=== PATIENT | female | born 1940 | race Caucasian/White ===

== ENCOUNTER 2021-11-11 19:24 | Emergency (ER) | payer BC, SELFPAY ==
[2021-11-11 19:30] VITALS: BP 175/93; PULSE 79; RESP 18; TEMP 36.7; O2SAT 98; BMI 23.2
[2021-11-11 19:36] VITALS: BP 156/97; PULSE 76
[2021-11-11 19:37] VITALS: BP 175/94; PULSE 76
--- NOTE | 2021-11-11 19:40 | XR_ITS ---
PROCEDURE INFORMATION: Exam: XR Left Hand Exam date and time: 11/11/2021 8:17 PM Age: 80 years old Clinical indication: Injury or trauma; Fall; Blunt trauma (contusions or hematomas); Hand; Left TECHNIQUE: Imaging protocol: XR Left hand. Views: 3 or more views. COMPARISON: No relevant prior studies available. FINDINGS: Bones/joints: Osteopenia. Osteopenia. Postsurgical changes to the 1st ray. Degenerative changes wrist with joint space narrowing and overlap bony structures. Mildly comminuted fracture distal radius which potentially extends to the articular surface. Soft tissues: Normal. IMPRESSION: Mildly comminuted fracture distal radius which potentially extends to the articular surface.
--- NOTE | 2021-11-11 19:40 | CT_ITS ---
PROCEDURE INFORMATION: Exam: CT Lumbar Spine Without Contrast Exam date and time: 11/11/2021 8:08 PM Age: 80 years old Clinical indication: Injury or trauma; Fall; Blunt trauma (contusions or hematomas) TECHNIQUE: Imaging protocol: Computed tomography images of the lumbar spine without contrast. Radiation optimization: All CT scans at this facility use at least one of these dose optimization techniques: automated exposure control; mA and/or kV adjustment per patient size (includes targeted exams where dose is matched to clinical indication); or iterative reconstruction. COMPARISON: No relevant prior studies available. FINDINGS: Bones/joints: Moderate scoliosis. Advanced degenerative changes most prominent at L2-L3 and L5-S1 where there is a 5 mm anterolisthesis. Partially calcified disc osteophyte complex L3-L4, and L4-L5. No acute fracture. Vasculature: Calcified atherosclerosis. No aneurysm. Soft tissues: Diverticulosis coli. 2.3 x 1.3 cm intermediate density left renal lesion. IMPRESSION: Chronic changes without acute osseous abnormality. Diverticulosis coli. Left renal lesion which is not a simple cyst and could be further evaluated with ultrasound or MRI on a nonemergent basis.
--- NOTE | 2021-11-11 19:40 | XR_ITS ---
PROCEDURE INFORMATION: Exam: XR Left Knee Exam date and time: 11/11/2021 8:17 PM Age: 80 years old Clinical indication: Injury or trauma; Fall; Blunt trauma; Knee; Left TECHNIQUE: Imaging protocol: XR Left knee. Views: 3 views. COMPARISON: No relevant prior studies available. FINDINGS: Bones/joints: Mild degenerative changes. No acute fracture or dislocation. Soft tissues: Prepatellar soft tissue swelling. IMPRESSION: No acute osseous abnormality.
--- NOTE | 2021-11-11 19:40 | XR_ITS ---
PROCEDURE INFORMATION: Exam: XR Left Wrist Exam date and time: 11/11/2021 8:17 PM Age: 80 years old Clinical indication: Injury or trauma; Fall; Blunt trauma (contusions or hematomas); Wrist; Left TECHNIQUE: Imaging protocol: XR Left wrist. Views: 3 or more views. COMPARISON: No relevant prior studies available. FINDINGS: Bones/joints: Osteopenia. Postsurgical changes to the 1st ray. Degenerative changes wrist with joint space narrowing and overlap bony structures. Mildly comminuted fracture distal radius which potentially extends to the articular surface. Soft tissues: Normal. IMPRESSION: Mildly comminuted fracture distal radius which potentially extends to the articular surface.
--- NOTE | 2021-11-11 19:40 | XR_ITS ---
PROCEDURE INFORMATION: Exam: XR Pelvis Exam date and time: 11/11/2021 8:17 PM Age: 80 years old Clinical indication: Injury or trauma; Fall; Blunt trauma (contusions or hematomas); Bilateral; Pelvic region TECHNIQUE: Imaging protocol: XR pelvis. Views: 1 or 2 view. COMPARISON: CT LUMBAR SPINE WO CON 11/11/2021 8:08 PM FINDINGS: Bones/joints: Osteopenia. Degenerative changes of the lumbosacral spine. No acute fracture. Soft tissues: Unremarkable. IMPRESSION: No acute findings.
--- NOTE | 2021-11-11 19:40 | CT_ITS ---
PROCEDURE INFORMATION: Exam: CT Head Without Contrast Exam date and time: 11/11/2021 8:05 PM Age: 80 years old Clinical indication: Injury or trauma; Fall; Blunt trauma (contusions or hematomas) TECHNIQUE: Imaging protocol: Computed tomography of the head without contrast. Radiation optimization: All CT scans at this facility use at least one of these dose optimization techniques: automated exposure control; mA and/or kV adjustment per patient size (includes targeted exams where dose is matched to clinical indication); or iterative reconstruction. COMPARISON: No relevant prior studies available. FINDINGS: Brain: Intracranial vascular calcification. Decreased attenuation of the supratentorial white matter is likely secondary to chronic microvascular ischemia. No acute intracranial hemorrhage. Cerebral ventricles: Ventricular and subarachnoid spaces are age appropriate. Paranasal sinuses: Moderate right maxillary sinus disease. Mastoid air cells: Visualized mastoid air cells are well aerated. Bones/joints: Unremarkable. No acute fracture. Soft tissues: Unremarkable. IMPRESSION: No acute intracranial abnormality.
--- NOTE | 2021-11-11 19:40 | CT_ITS ---
PROCEDURE INFORMATION: Exam: CT Cervical Spine Without Contrast Exam date and time: 11/11/2021 8:05 PM Age: 80 years old Clinical indication: Injury or trauma; Fall; Blunt trauma TECHNIQUE: Imaging protocol: Computed tomography images of the cervical spine without contrast. Radiation optimization: All CT scans at this facility use at least one of these dose optimization techniques: automated exposure control; mA and/or kV adjustment per patient size (includes targeted exams where dose is matched to clinical indication); or iterative reconstruction. COMPARISON: No relevant prior studies available. FINDINGS: Limitations: Limited by artifact arising from metallic dental hardware/dental amalgam. Patient motion. Bones/joints: Nonspecific straightening. Grade 1 anterolisthesis of C2 on C3, C3 on C4 and C4 on C5. Vertebral body heights are preserved. [id number] degenerative change about the dens. Mild to moderate prevertebral osteophytosis. There are bilateral facet joint degenerative changes. No acute cervical spine fracture. Discs/Spinal canal/Neural foramina: No definite significant central canal stenosis within limitations of technique. Lungs: Lung apices are normal. Pleural spaces: No visible pneumothorax. Soft tissues: Unremarkable. IMPRESSION: No acute cervical spine fracture.
--- NOTE | 2021-11-11 19:40 | XR_ITS ---
PROCEDURE INFORMATION: Exam: XR Left Ankle Exam date and time: 11/11/2021 8:17 PM Age: 80 years old Clinical indication: Injury or trauma; Fall; Blunt trauma; Ankle; Left TECHNIQUE: Imaging protocol: XR Left ankle. Views: 3 or more views. COMPARISON: No relevant prior studies available. FINDINGS: Bones/joints: Osteopenia. No acute fracture or dislocation. Soft tissues: Normal. IMPRESSION: No acute findings.
--- NOTE | 2021-11-11 19:50 | PC.NURSE ---
ice pack applied to left knee.
--- NOTE | 2021-11-11 20:12 | [facility].EDFALL ---
ED Disposition Clinical Impression: Renal lesion Fracture of wrist Qualifiers: Encounter type: initial encounter Fracture type: closed Laterality: left Qualified Code(s): S62.102A - Fracture of unspecified carpal bone, left wrist, initial encounter for closed fracture Contusion of knee, left Qualifiers: Encounter type: initial encounter Qualified Code(s): S80.02XA - Contusion of left knee, initial encounter Fall Qualifiers: Encounter type: initial encounter Qualified Code(s): W19.XXXA - Unspecified fall, initial encounter Concussion without loss of consciousness Qualifiers: Encounter type: initial encounter Qualified Code(s): S06.0X0A - Concussion without loss of consciousness, initial encounter Osteopenia Qualifiers: Osteopenia location: multiple sites Qualified Code(s): M85.89 - Other specified disorders of bone density and structure, multiple sites Disposition: Home, Self-Care Condition on Discharge: Good Instructions: DI for Wrist Fracture Additional Instructions: ice and wear splint and see ortho and pcp for follow up Referrals: Provider,MD Sarina [Primary Care Provider] - Dwight Mcguire MD [Staff Physician] - - Critical Care Critical Care Time: No Attestation: On 11/11/21, the high probability of a clinically significant, sudden or life threatening deterioration of the following system(s) required my full and direct attention, intervention and personal management. The time I documented below is in addition to time spent performing reported procedures but includes the following listed in this critical care notation. Medical Decision Making - Medical Records Medical records reviewed: Yes: I reviewed the patient's medical records. - Azar Inquiry Pt receiving controlled substance: No Vital Signs: 11/11/21 19:30 11/11/21 19:36 11/11/21 19:37 Temperature 98.0 F Temperature Source Oral Pulse Rate Pulse Rate [Orthostatic Lying] 76 Pulse Rate [Orthostatic Sitting] 76 Pulse Rate [Right Radial] 79 Respiratory Rate 18 Blood Pressure Blood Pressure [Orthostatic Lying] 156/97 H Blood Pressure [Orthostatic Sitting] 175/94 H Blood Pressure [Right Arm] 175/93 H Blood Pressure Mean [Right Arm] 120 Blood Pressure Source Blood Pressure Source [Right Arm] Automatic Cuff Blood Pressure Position Blood Pressure Position [Right Arm] Sitting 02 Sat by Pulse Oximetry 98 Oxygen Delivery Method Room Air 11/11/21 21:20 Temperature Temperature Source Pulse Rate 71 Pulse Rate [Orthostatic Lying] Pulse Rate [Orthostatic Sitting] Pulse Rate [Right Radial] Respiratory Rate 18 Blood Pressure 161/86 H Blood Pressure [Orthostatic Lying] Blood Pressure [Orthostatic Sitting] Blood Pressure [Right Arm] Blood Pressure Mean [Right Arm] Blood Pressure Source Automatic Cuff Blood Pressure Source [Right Arm] Blood Pressure Position Sitting Blood Pressure Position [Right Arm] 02 Sat by Pulse Oximetry 94 L Oxygen Delivery Method Room Air - Lab Data Lab results reviewed: Yes: I reviewed the patient's lab results. Orders (Tests/Meds): ED MEDICATIONS Discontinued Medications Generic Name Dose Route Start Last Admin Trade Name Freq PRN Reason Stop Dose Admin Morphine Sulfate 4 mg 11/11/21 19:56 11/11/21 20:05 Morphine 4mg/Ml Syringe IV 11/11/21 19:57 4 mg ONCE ONE Administration Ondansetron HCl 4 mg 11/11/21 20:54 11/11/21 20:55 Ondansetron 4mg/2ml Vial IV 11/11/21 20:55 4 mg ONCE ONE Administration - Radiology Data #1 Image(s): Chest, Wrist, Hand, Pelvis, Knee, Ankle Image Reviewed: Yes I have reviewed radiologist's interpretation Preliminary Findings: Abnormal - CT Data CT Scan: Head, C-Spine, L-Spine Time Received: 22:[address] Reviewed: Yes: I have viewed the radiologist's interpretation Preliminary Findings: Abnormal Medical Decision Narrative: has lt wrist fx and has swelling lt knee and has osteop
--- NOTE | 2021-11-11 20:17 | XR_ITS ---
PROCEDURE INFORMATION: Exam: XR Chest Exam date and time: 11/11/2021 8:17 PM Age: 80 years old Clinical indication: Injury or trauma; Fall; Blunt trauma (contusions or hematomas) TECHNIQUE: Imaging protocol: XR of the chest. Views: 4 or more views. COMPARISON: CT CERVICAL SPINE WO CON 11/11/2021 8:05 PM FINDINGS: Lungs: No consolidation. Pleural spaces: No pleural effusion. No pneumothorax. Heart/Mediastinum: The mediastinum appears widened measuring 9 cm in width. Bones/joints: Degenerative and postsurgical changes to the shoulders. IMPRESSION: The mediastinum appears widened which may be chronic however can be seen in the setting of trauma and would better evaluated with CT imaging if clinically indicated.
[2021-11-11 21:20] VITALS: BP 161/86; PULSE 71; RESP 18; O2SAT 94
[2021-11-11 23:00] VITALS: BP 150/80; PULSE 75; RESP 16; TEMP 36.7; O2SAT 95
== END 2021-11-11 23:03 | disposition home or self-care (01) ==
PROVIDERS: Emergency Provider Emergency Medicine
DX: S62.102A Fracture of unspecified carpal bone, left wrist, initial encounter for closed fracture (principal); S80.02XA Contusion of left knee, initial encounter; S06.0X9A Concussion with loss of consciousness of unspecified duration, initial encounter; W18.30XA Fall on same level, unspecified, initial encounter; R42 Dizziness and giddiness; M85.80 Other specified disorders of bone density and structure, unspecified site
CPT/HCPCS: 70450; 71045; 72125; 72131; 72170; 73110; 73130; 73562; 73610; 96374; 96375; 99284; J2405

== ENCOUNTER → 2021-12-15 09:37 | Outpatient (CLI) | payer BC, SELFPAY ==
--- NOTE | 2021-12-15 09:42 | XR_ITS ---
FINAL REPORT CLINICAL HISTORY: wrist injury COMPARISON: November 11, 2021 FINDINGS: LEFT WRIST Three views of the left wrist were obtained. There appears to be an acute transverse fracture through the distal radial metaphysis, nondisplaced with no intra-articular extension. There is a nondisplaced fracture in the distal 4th metacarpal. There is a healed fracture of the proximal 3rd metacarpal. Orthopedic hardware is securing the 1st metacarpophalangeal joint which is stable. The soft tissues are unremarkable. IMPRESSION: Transverse fracture of the distal radial metaphysis. Nondisplaced fracture of the distal 4th metacarpal. Reviewed, Interpreted and Dictated by Chris Manuel MD Transcribed by Blanca Guthrie Authenticated and [facility]
== END ==
PROVIDERS: PCP Family Medicine; Visit Provider Orthopaedic Surgery
DX: S52.502D Unspecified fracture of the lower end of left radius, subsequent encounter for closed fracture with routine healing (principal)
CPT/HCPCS: 73110

== ENCOUNTER 2021-12-29 19:44 | Emergency (ER) | payer BC, SELFPAY ==
[2021-12-29 19:46] VITALS: BP 161/93; PULSE 84; RESP 16; TEMP 36.8; O2SAT 97; BMI 23.4
--- NOTE | 2021-12-29 20:36 | CT_ITS ---
PROCEDURE INFORMATION: Exam: CT Cervical Spine Without Contrast Exam date and time: 12/29/2021 9:10 PM Age: 81 years old Clinical indication: Injury or trauma; Fall; Blunt trauma; Additional info: Fall, head injury TECHNIQUE: Imaging protocol: Computed tomography of the cervical spine without contrast. Radiation optimization: All CT scans at this facility use at least one of these dose optimization techniques: automated exposure control; mA and/or kV adjustment per patient size (includes targeted exams where dose is matched to clinical indication); or iterative reconstruction. COMPARISON: CT CERVICAL SPINE WO CON 11/11/2021 8:05 PM FINDINGS: Bones/joints: No acute fracture. Normal alignment. Discs/Spinal canal/Neural foramina: Severe disc space narrowing at C3-C4. Moderate disc space narrowing at C4-C5, C5-C6 and C6-C7. Multilevel endplate osteophytes. No significant disc protrusion. No severe spinal canal stenosis. Multilevel facet arthrosis. Lungs: Lung apices are normal. Soft tissues: Unremarkable. IMPRESSION: No acute findings.
--- NOTE | 2021-12-29 20:36 | CT_ITS ---
PROCEDURE INFORMATION: Exam: CT Head Without Contrast Exam date and time: 12/29/2021 9:10 PM Age: 81 years old Clinical indication: Injury or trauma; Fall; Blunt trauma (contusions or hematomas); Consciousness not specified; Additional info: Fall, hrad injury) TECHNIQUE: Imaging protocol: Computed tomography of the head without contrast. Radiation optimization: All CT scans at this facility use at least one of these dose optimization techniques: automated exposure control; mA and/or kV adjustment per patient size (includes targeted exams where dose is matched to clinical indication); or iterative reconstruction. COMPARISON: CT HEAD/BRAIN WO CON 11/11/2021 8:05 PM FINDINGS: Brain: There is age-appropriate cerebral atrophy. Severe changes of chronic small vessel ischemia within the cerebral white matter regions bilaterally. No acute infarct or hemorrhage. Cerebral ventricles: No ventriculomegaly. Paranasal sinuses: Right maxillary sinus disease. Mastoid air cells: Visualized mastoid air cells are well aerated. Bones/joints: Unremarkable. No acute fracture. Soft tissues: High right occipital scalp hematoma. IMPRESSION: 1. No acute intracranial abnormality. 2. High right occipital scalp hematoma.
--- NOTE | 2021-12-29 20:41 | XR_ITS ---
PROCEDURE INFORMATION: Exam: XR Pelvis Exam date and time: 12/29/2021 9:13 PM Age: 81 years old Clinical indication: Injury or trauma; Fall; Blunt trauma (contusions or hematomas); Does not apply; Pelvic region TECHNIQUE: Imaging protocol: Radiologic exam of the pelvis. Views: 1 or 2 view. COMPARISON: CR XR PELVIS 1-2V 11/11/2021 8:17 PM FINDINGS: Bones/joints: Unremarkable. No acute fracture. Soft tissues: Unremarkable. IMPRESSION: No acute findings.
--- NOTE | 2021-12-29 20:41 | XR_ITS ---
PROCEDURE INFORMATION: Exam: XR Chest Exam date and time: 12/29/2021 9:11 PM Age: 81 years old Clinical indication: Injury or trauma; Fall; Blunt trauma (contusions or hematomas) TECHNIQUE: Imaging protocol: Radiologic exam of the chest. Views: 1 view. COMPARISON: CR XR CHEST AP 11/11/2021 8:17 PM FINDINGS: Lungs: Unremarkable. No consolidation. Granulomatous changes. Pleural spaces: Unremarkable. No pleural effusion. No pneumothorax. Heart/Mediastinum: Unremarkable. No cardiomegaly. Bones/joints: Unremarkable. IMPRESSION: No acute findings.
[2021-12-29 20:53] LABS: Basophils % 0.5 % (0.1-2.0); Eosinophils # 0.2 K/mm3 (0.0-0.4); Eosinophils % 2.3 % (0.1-12.0); Hematocrit 37.9 % (37.0-47.0); Lymphocytes # 1.7 K/mm3 (0.7-4.5); Lymphocytes % 20.2 % (10-50); Mean Corpuscular HGB Conc 34.3 g/dL (31.8-35.4); Mean Corpuscular Hemoglobin 33.5 pg (27.0-31.2); Mean Corpuscular Volume 97.8 fl (81-99); Mean Platelet Volume 8.4 fl (7.4-10.4); Monocytes # 0.5 K/mm3 (0.1-1.0); Monocytes % 5.6 % (1.7-9.3); Neutrophils # 5.9 K/mm3 (1.8-7.8); Neutrophils % 71.5 % (37.0-80.0); Platelet Count 367 K/mm3 (142-424); Red Blood Count 3.87 M/mm3 (4.20-5.40); Red Cell Distribution Width 12.5 % (11.5-17.5); White Blood Count 8.3 K/mm3 (4.8-10.8)
[2021-12-29 21:11] LABS: Alanine Aminotransferase 17 U/L (12-78); Albumin/Globulin Ratio 1.2 (1.1-1.8); Alkaline Phosphatase 110 U/L (38-126); Anion Gap 9.9 mEq/L (5-15); Aspartate Amino Transferase 50 U/L (14-36); Bilirubin,Total 0.7 mg/dl (0.2-1.3); Blood Urea Nitrogen 10 mg/dl (7-17); Carbon Dioxide 25 mmol/L (22.0-30.0); Chloride 101 mmol/L (98-107); Creatinine Clearance Estimated 39 mL/min (50-200); Estimated Glomerular Filt Rate 69 ml/min (>60); GFR (African American) 84 ML/MIN (>60); Globulin 3.4 g/dL (1.3-3.2); Glucose 120 mg/dl (74-100); Potassium 4.9 mmoL/L (3.5-5.1); Sodium 131 mmol/L (136-145); Total Protein,Serum 7.4 g/dl (6.3-8.2)
--- NOTE | 2021-12-29 21:18 | HMH.EDFALL ---
ED Disposition Clinical Impression: Closed head injury Qualifiers: Encounter type: initial encounter Qualified Code(s): S09.90XA - Unspecified injury of head, initial encounter Concussion without loss of consciousness Qualifiers: Encounter type: initial encounter Qualified Code(s): S06.0X0A - Concussion without loss of consciousness, initial encounter Hematoma of scalp Qualifiers: Encounter type: initial encounter Qualified Code(s): S00.03XA - Contusion of scalp, initial encounter Occipital scalp laceration Qualifiers: Encounter type: initial encounter Qualified Code(s): S01.01XA - Laceration without foreign body of scalp, initial encounter Disposition: Home, Self-Care Condition on Discharge: Good Instructions: DI for Concussion Additional Instructions: see pcp in am for close follow up and sutures out 10-12 days Referrals: Wanda Uribe MD [Primary Care Provider] - - Critical Care Critical Care Time: No Attestation: On 12/29/21, the high probability of a clinically significant, sudden or life threatening deterioration of the following system(s) required my full and direct attention, intervention and personal management. The time I documented below is in addition to time spent performing reported procedures but includes the following listed in this critical care notation. Medical Decision Making - Medical Records Medical records reviewed: Yes: I reviewed the patient's medical records. - Azar Inquiry Pt receiving controlled substance: No Vital Signs: 12/29/21 19:46 Temperature 98.3 F Temperature Source Oral Pulse Rate [Left] 84 Respiratory Rate 16 Blood Pressure [Right Arm] 161/93 H Blood Pressure Mean [Right Arm] 115 02 Sat by Pulse Oximetry 97 Oxygen Delivery Method Room Air - Lab Data Lab results reviewed: Yes: I reviewed the patient's lab results. Lab Results 12/29/21 20:39: WBC 8.3, RBC 3.87 L, Hgb 13.0, Hct 37.9, MCV 97.8, MCH 33.5 H, MCHC 34.3, RDW 12.5, Plt Count 367, MPV 8.4, Neut % (Auto) 71.5, Lymph % (Auto) 20.2, Slope % (Auto) 5.6, Eos % (Auto) 2.3, Baso % (Auto) 0.5, Neut # (Auto) 5.9, Lymph # (Auto) 1.7, Slope # (Auto) 0.5, Eos # (Auto) 0.2, Baso # (Auto) 0.0 12/29/21 20:39: Sodium 131 L, Potassium 4.9, Chloride 101, Carbon Dioxide 25, Anion Gap 9.9, BUN 10, Creatinine 0.80, Estimated Creat Clear 39, Estimated GFR 69, Est GFR ( Amer) 84, Glucose 120 H, Calcium 9.0, Total Bilirubin 0.7, AST 50 H, ALT 17, Alkaline Phosphatase 110, C-Reactive Protein 7.0 H, Total Protein 7.4, Albumin 4.0, Globulin 3.4 H, Albumin/Globulin Ratio 1.2 12/29/21 20:39: Procalcitonin 0.035 Result diagrams: 12/29/21 20:39 12/29/21 20:39 Orders (Tests/Meds): ORDERS Category Date Time Status Complete Blood Count Auto Diff Stat Lab 12/29/21 20:39 Results Erythrocyte Sedimentation Rate Stat Lab 12/29/21 20:39 Results - Radiology Data #1 Image(s): Chest, Pelvis Image Reviewed: Yes I have reviewed radiologist's interpretation Preliminary Findings: Normal/NAD - CT Data CT Scan: Head, C-Spine Time Received: 22:[address] Reviewed: Yes: I have viewed the radiologist's interpretation Preliminary Findings: No Fracture Seen Medical Decision Narrative: has stable exam w/o fx on ct and lac repaired and appears dry with no expanding hematoma Fall HPI - General Chief Complaint: Head Injury Stated Complaint: AO FELL 11/30 1599 Time Seen by Provider: 12/29/21 21:18 Mode of Arrival: Wheelchair Source of Information: Patient, Spouse, Medical Record Limitations: No Limitations Description of Symptoms (Recalled from ER Triage Doc. by RN): pt stated that about 1809 she tripped on a rug and fell backwards onto a concrete floor. the pt states no loc and 9/10 pain. there is a large raised knot on the posterior top of her head. there is dried blood on the area as well. the pt states that she has no vision changes and i soriented x. pt pupils are reactive and brisk the right pupil is larger
[2021-12-29 21:31] LABS: Procalcitonin 0.035 ng/mL (0.0-2.0)
[2021-12-29 22:32] VITALS: BP 132/85; PULSE 89; RESP 19; TEMP 36.8; O2SAT 99
[2021-12-30 00:56] LABS: Erythrocyte Sedimentation Rate 1 mm/hr (0-30)
== END 2021-12-29 22:54 | disposition home or self-care (01) ==
PROVIDERS: Emergency Provider Emergency Medicine; PCP Pediatrics
DX: S01.01XA Laceration without foreign body of scalp, initial encounter (principal); S06.6X0A Traumatic subarachnoid hemorrhage without loss of consciousness, initial encounter; I10 Essential (primary) hypertension; D64.9 Anemia, unspecified; M19.90 Unspecified osteoarthritis, unspecified site; Z79.890 Hormone replacement therapy; Z88.0 Allergy status to penicillin; Z91.010 Allergy to peanuts; Z23 Encounter for immunization; Z90.81 Acquired absence of spleen; Z87.891 Personal history of nicotine dependence; W01.198A Fall on same level from slipping, tripping and stumbling with subsequent striking against other object, initial encounter
CPT/HCPCS: 12002; 70450; 71045; 72125; 72170; 80053; 84145; 85025; 85651; 86140; 90471; 90715; 99285

== ENCOUNTER 2022-12-16 12:30 | Emergency (ER) | payer BC, MEDICARE, SELFPAY ==
[2022-12-16 12:31] VITALS: BP 152/83; PULSE 98; RESP 19; TEMP 36.7; O2SAT 98; BMI 23.0
--- NOTE | 2022-12-16 13:55 | CT_ITS ---
FINAL REPORT CLINICAL HISTORY: mid abdominal pain COMPARISON: 11/11/2021 FINDINGS: CT OF THE ABDOMEN AND PELVIS WITH CONTRAST Axial CT images of the abdomen and pelvis were obtained after the administration of IV contrast. Coronal and sagittal reformatted images were also obtained and reviewed. This study was performed with techniques to keep radiation doses as low as reasonably achievable (ALARA). Individualized dose reduction techniques using automated exposure control or adjustment of mA and/or kV according to the patient's size were employed. Abdomen: There is mild atelectasis or scarring in the lung bases. The heart is normal in size. The gallbladder is not visualized suggesting a prior cholecystectomy. The common bile duct measures up to 14 mm in size, a nonspecific finding, favor postcholecystectomy enlargement. The spleen is extremely diminutive and may have been surgically resected. There are multiple small foci of increased density in the left upper quadrant that may represent either multiple splenules versus splenosis, unchanged since the prior CT of November 2021. No adrenal mass is present. The pancreas has an unremarkable appearance. The kidneys are normal other than a small left renal cyst. The aorta is normal in caliber. There is no free fluid or adenopathy. No mass or abnormal fluid collection is seen. Pelvis: The appendix is not well-visualized. The urinary bladder is unremarkable. There is a large amount of stool in the distal colon and rectum with surrounding inflammation in the rectum consistent with stercoral colitis. There is sigmoid diverticulosis present as well but no definite diverticulitis is seen. A Yates catheter is present in the bladder. There is no evidence of mass or adenopathy. There is no evidence of bowel obstruction. IMPRESSION: Large stool burden in the rectum and sigmoid colon, with surrounding wall thickening and inflammation of the rectum, consistent in appearance with stercoral colitis. Post cholecystectomy with prominence of the common bile duct up to 14 mm in size, nonspecific, favor post cholecystectomy change. Reviewed, Interpreted and Dictated by Jeffery Orta III, MD Transcribed by Stacey Greenwood Authenticated and [facility]
[2022-12-16 13:56] LABS: Microscopic, Urine URINE MICROSCOPIC (MICROSCOPIC)
[2022-12-16 13:58] LABS: Basophils % 0.2 % (0.1-2.0); Eosinophils # 0.1 K/mm3 (0.0-0.4); Eosinophils % 1.1 % (0.1-12.0); Hematocrit 38.1 % (37.0-47.0); Hemoglobin 11.8 g/dL (12.2-16.2); Lymphocytes # 1.2 K/mm3 (0.7-4.5); Lymphocytes % 13.1 % (10-50); Mean Corpuscular HGB Conc 30.8 g/dL (31.8-35.4); Mean Corpuscular Hemoglobin 31.1 pg (27.0-31.2); Mean Corpuscular Volume 100.8 fl (81-99); Mean Platelet Volume 8.8 fl (7.4-10.4); Monocytes # 0.5 K/mm3 (0.1-1.0); Monocytes % 5.1 % (1.7-9.3); Neutrophils # 7.3 K/mm3 (1.8-7.8); Neutrophils % 80.5 % (37.0-80.0); Platelet Count 354 K/mm3 (142-424); Red Blood Count 3.78 M/mm3 (4.20-5.40); Red Cell Distribution Width 12.8 % (11.5-17.5); White Blood Count 9.1 K/mm3 (4.8-10.8)
[2022-12-16 14:01] LABS: Chloride 95 mmol/L (98-107); Potassium 4.1 mmoL/L (3.5-5.1); Sodium 128 mmol/L (136-145)
[2022-12-16 14:03] LABS: Alanine Aminotransferase 19 U/L (12-78); Alkaline Phosphatase 109 U/L (38-126); Aspartate Amino Transferase 33 U/L (14-36); Bilirubin,Total 0.3 mg/dl (0.2-1.3); Blood Urea Nitrogen 7 mg/dl (7-17); Creatinine Clearance Estimated 39 mL/min (50-200); Estimated Glomerular Filt Rate 81 ml/min (>60); GFR (African American) 98 ML/MIN (>60)
[2022-12-16 14:04] LABS: Albumin Level 3.4 g/dl (3.5-5.0); Albumin/Globulin Ratio 1.1 (1.1-1.8); Anion Gap 9.1 mEq/L (5-15); Calcium 8.4 mg/dl (8.4-10.2); Carbon Dioxide 28 mmol/L (22.0-30.0); Globulin 3.1 g/dL (1.3-3.2); Glucose 100 mg/dl (74-100); Lipase 14 U/L (23-300); Magnesium 1.8 mg/dl (1.6-2.3); Total Protein,Serum 6.5 g/dl (6.3-8.2)
[2022-12-16 14:05] LABS: Lactic Acid 0.7 mmol/L (0.7-2.1)
[2022-12-16 14:07] LABS: Appearance,Urine CLEAR (Clear); Bilirubin,Urine Negative (Negative); Blood, Urine TRACE-I (Negative); Color,Urine YELLOW (Yellow); Glucose,Urine (UA) Negative (Negative); Ketones,Urine TRACE (Negative); Leukocyte Esterase,Urine Negative (Negative); Nitrate,Urine Negative (Negative); PH,Urine 6.5 (5.0-8.5); Protein,Urine Negative (Negative); Specific Gravity, Urine <= 1.005 (1.005-1.030); Urobilinogen,Urine 0.2 EU/dl (0.2)
[2022-12-16 14:16] LABS: RBC,Urine Occasional #/hpf (0-3)
--- NOTE | 2022-12-16 15:39 | HMH.EDGENADL ---
Discharge Plan Disposition Patient Disposition: Home, Self-Care Condition: Good Chief Complaint: Abdominal Pain Prescriptions Prescriptions: No Action cyclobenzaprine 10 mg tablet 10 mg PO TIDP PRN (Reason: Muscle Spasm) Patient Comments: TAKE 1 TABLET BY MOUTH THREE TIMES A DAY NEEDED anastrozole 1 mg tablet 1 mg PO DAILY Patient Comments: TAKE 1 TABLET BY MOUTH EVERY DAY alprazolam 1 mg tablet 1 mg PO TIDP PRN (Reason: Anxiety) Patient Comments: TAKE 1 TABLET BY MOUTH THREE TIMES A DAY NEEDED meloxicam 15 mg tablet 15 mg PO DAILY Patient Comments: TAKE 1 TABLET BY MOUTH EVERY DAY amlodipine 5 mg tablet 5 mg PO DAILY Patient Comments: TAKE 1 TABLET BY MOUTH EVERY DAY estradiol 1 mg tablet 1 mg PO HS Patient Comments: TAKE 1 TABLET BY MOUTH NIGHTLY meclizine 25 mg tablet 25 mg PO TIDP PRN (Reason: Vertigo) Patient Comments: TAKE 1 TABLET BY MOUTH THREE TIMES A DAY NEEDED simvastatin 20 mg tablet 20 mg PO HS Patient Comments: TAKE 1 TABLET BY MOUTH EVERY DAY IN THE EVENING ferrous sulfate 325 mg (65 mg iron) tablet 325 mg PO DAILY Patient Comments: TAKE 1 TABLET BY MOUTH EVERY DAY esomeprazole magnesium 40 mg capsule,delayed release(DR/EC) 40 mg PO DAILY Patient Comments: TAKE 1 CAPSULE BY MOUTH EVERY DAY losartan 25 mg tablet 25 mg PO DAILY Patient Comments: TAKE 1 TABLET BY MOUTH EVERY DAY metoprolol tartrate 50 mg tablet 50 mg PO BID Patient Comments: TAKE 1 TABLET BY MOUTH TWICE A DAY furosemide 20 mg tablet 20 mg PO DAILY Patient Comments: TAKE 1 TABLET BY MOUTH EVERY DAY albuterol sulfate 90 mcg/actuation HFA aerosol inhaler 2 puff INHALATION Q4HP PRN (Reason: Breathing Problems) Patient Comments: INHALE 2 PUFFS INTO THE LUNGS EVERY 4 HOURS NEEDED FOR SHORTNESS OF BREATH escitalopram oxalate 10 mg tablet 10 mg PO DAILY Patient Comments: TAKE 1 TABLET BY MOUTH EVERY DAY potassium chloride [Klor-Con M10] 10 mEq tablet,ER particles/crystals 10 meq PO DAILY Patient Comments: TAKE 1 TABLET BY MOUTH EVERY DAY oxycodone 10 mg tablet 10 mg PO BIDP PRN (Reason: Chronic pain) Patient Comments: TAKE 1 TABLET BY MOUTH 2 TIMES DAILY NEEDED FOR CHRONIC PAIN (G89.29) FOR UP TO 30 DAYS. Referrals Follow up/Referrals: Margot Uribe MD [Primary Care Provider] - See instructions Activity Restrictions/Add. Instructions Additional Instructions/Restrictions: Enemas/suppositories at at home. Follow-up PCP in 1 to 2 days. Return to the ER for fever Clinical Impressions Clinical Impression: Constipation Qualifiers: Constipation type: unspecified constipation type Qualified Code(s): K59.00 - Constipation, unspecified Instructions Patient Instructions: DI for Acute Abdominal Pain Discharge ED Provider: Prosper Sandra General Adult HPI General Chief complaint: Abdominal Pain Stated complaint: Unable to use the bathroom, bodyaches Time Seen by Provider: 12/16/22 15:38 Mode of Arrival: Ambulatory Source of Information: Patient Limitations: No Limitations Description of Symptoms (Recalled from ER Triage Doc. by RN): 81 F presents with 4 days of no bowel movement and decreasing ability to urinate. Patient reports last urination was last night. Patient reports history of SBO years ago; however, no issues since. Patient reports abdominal cramping overall with nausea History of Present Illness HPI narrative: 81yo F presents to the ER secondary to abdominal pain and reports she has not had a bowel movement in several days. Reports she is not even passing gas. History of a bowel obstruction. Has had multiple abdominal surgeries. No fever. Complains of nausea without vomiting. Related Data Home Medications Medication Instructions Recorded Confirmed albuterol sulfate 90 mcg/actuat
--- NOTE | 2022-12-16 18:30 | PC.NURSE ---
pt ambulatory to the restroom
[2022-12-16 18:40] VITALS: BP 111/69; PULSE 64; RESP 17; TEMP 36.8; O2SAT 98
--- NOTE | 2022-12-16 19:07 | PC.NURSE ---
Patient's verbally aggressive with this RN due to wait time of testing and how busy our ED was. I tried to explain that we were extremely busy; however, their care was still important. Patient's spouse told me to get out of room and not come back in unless I had their discharge paperwork. Charge notified and attempted to speak with Spouse and Patient.
== END 2022-12-16 19:12 | disposition home or self-care (01) ==
PROVIDERS: Emergency Provider Family Medicine; PCP Family Medicine
DX: K59.00 Constipation, unspecified (principal); R33.9 Retention of urine, unspecified; R10.9 Unspecified abdominal pain; E87.1 Hypo-osmolality and hyponatremia
CPT/HCPCS: 51702; 74177; 80053; 81001; 83605; 83690; 83735; 85025; 96360; 96361; 99284; 99285; Q9967